=== PATIENT | female | born 1965 | race Caucasian/White ===

== ENCOUNTER 2022-05-23 17:27 | Emergency (ER) | payer BC, SELFPAY ==
[2022-05-23 17:53] VITALS: BP 141/105; PULSE 100; RESP 18; TEMP 36.7; O2SAT 96; BMI 28.2
--- NOTE | 2022-05-23 18:16 | CRLHL7_ITS ---
For Patients: As a result of the Century Cures Act, medical imaging exams and procedure reports are released immediately into your electronic medical record. You may view this report before your referring provider. If you have questions, please contact your health care provider. INDICATION: Sinus pressure. TECHNIQUE: CT sinus without contrast. COMPARISON: None. FINDINGS: Paranasal sinuses: Aplastic left frontal sinus. Mild mucosal thickening in the maxillary antra inferiorly. Mucosal thickening with narrowing of the left ostiomeatal unit. The ostiomeatal units are otherwise patent. The fovea ethmoidalis and orbital blackwell are intact. The nasal septum is mildly deviated to the right. The nasal turbinates are normal. Scattered left nasal cavity mucosal thickening. Orbits and globes: Mild prominence of the optic nerve sheaths. Visualized intracranial contents: Partially empty sella. Soft tissues: Unremarkable. IMPRESSION: 1. Mild scattered mucosal thickening in the left nasal cavity and inferior maxillary antra. No evidence of sinusitis. 2. Partially empty sella with mild prominence of the optic nerve sheaths, nonspecific but may be seen in the setting of idiopathic intracranial hypertension. Clinically correlate. Please note that all CT scans at this facility use dose modulation, iterative reconstruction, and/or weight-based dosing when appropriate to reduce radiation dose to as low as reasonably achievable. Dictated by Sohail Malone MD @ 05/23/2022 7:30:33 PM (Electronically Signed)
--- NOTE | 2022-05-23 18:16 | ED.GENADULT ---
HPI - General Adult General Chief complaint: Unspecified Complaint, Adult Stated complaint: Covid+ Pain Fever Sinus Pressure Time Seen by Provider: 05/23/22 17:28 History of Present Illness HPI narrative: This 57-year-old female comes in reporting upper respiratory symptoms including occasional cough, sinus congestion with lots of pain and pressure in her face and forehead. She does not report any shortness of breath. She states that she has had a fever up to 103? F. She tested at home for COVID yesterday which yielded a positive result. Related Data Home Medications Medication Instructions Recorded Confirmed cholecalciferol (vitamin D3) 1,250 05/23/22 mcg (50,000 unit) capsule spironolactone 100 mg tablet mg 05/23/22 triamterene 37.5 cap 05/23/22 mg-hydrochlorothiazide 25 mg capsule Previous Rx's Medication Instructions Recorded methylprednisolone 4 mg tablets in See Rx Instructions PO .COMPLEX 05/23/22 a dose pack (Medrol (Douglas)) #21 ea ondansetron HCl 4 mg tablet 4 mg PO Q6H #20 tabs 05/23/22 tramadol 50 mg tablet 50 mg PO Q6H PRN pain #20 tabs 05/23/22 Allergies Allergy/AdvReac Type Severity Reaction Status Date / Time cefaclor [From [facility]] Allergy Verified 05/23/22 17:58 Review of Systems Status of ROS: Reports: 10 or more systems reviewed and unremarkable except as noted in History and below Narrative: Constitutional: No weight gain or loss. She reports fevers. Eyes: No discharge. No vision changes. HENT: Nasal congestion, no sore throat, no ear pain. She has headache and sinus pain and pressure. Cardiovascular: No chest pain, no palpitations. Respiratory: No shortness of breath, no wheezes. Occasional cough. Gastrointestinal: No abdominal pain, no vomiting, no diarrhea. Genitourinary: No dysuria, no hematuria. Musculoskeletal: Normal range of motion. Skin: No rashes, no pruritis. Neurological: No dizziness, weakness, sensory change, speech change. Endo/Heme/Allergies: No bruising or bleeding. No polydipsia. Pysch: no suicidality, no anxiety, no insomnia. All other systems reviewed and are negative. PFSH PFSH Social History Smoking Status: Never smoker Do you use any of these nicotine containing products: None Second hand tobacco smoke exposure: No How often do you have a drink containing alcohol: never How often do you have six or more drinks on one occasion: Never AUDIT-C Alcohol total score: 0 Non-prescribed substance use: denies use service: No Exam Narrative: Exam Narrative: Constitutional: Well-developed, well-nourished. She appears to be in discomfort with respect to her symptoms. HEENT: Normocephalic, atraumatic. Neck: Normal range of motion. Nontender. Supple. Heart: Regular. No murmurs. Normal rate. Intact distal pulses. Lungs: Clear to auscultation. No chest discomfort. No wheezes, rhonchi, or rales. Abdomen: Normal bowel sounds. Nontender. No rebound tenderness. Genitalia: Deferred. Back: No midline tenderness. Normal range of motion. Extremities: Normal range of motion. No injury. Skin: Intact. No rash. Warm. No erythema or pallor. Neurologic: No altered sensation. No weakness. Alert and oriented. Psychiatric: No suicidality. No anxiety or depression. No insomnia. Nursing notes and vitals signs are reviewed. Const: Vital Signs, click to edit/add: Vital Signs - 24 hr 05/23/22 17:53 Temperature 98.0 F Pulse Rate [Left P ulse Oximeter] 100 Respiratory Rate 18 Blood Pressure [Ri ght Upper Arm] 141/105 H Pulse Oximetry 96 Oxygen Delivery Me thod Room Air Course Vital Signs Vital signs: Initial Vital Signs Temperature 98.0 F 05/23/22 17:53 Temperature Source Temporal Artery Scan 05/23/22 17:53 Pulse Rate 100 05/23/22 17:53 Pulse Rhythm 05/23/22 17:53 Pulse Strength 3+ Normal 05/23/22 17:53 Respiratory Rate 18 05/23/22 17:53 Blood Pressure 141/105 H 05/23/22 17:53 Blood Pressure Mean 117 05/23/22 17:53 Blood Pressure Position Sitting 05/23/22 17:53 Pulse Oximetry 96 05/23/22 17:53 Oxygen Delivery Method 05/23/22 17:53 Vital Signs Temperature 98.0 F 05/23/22 17:53 Pulse Rate 100 05/23/22 17:53 Respiratory Rate 18 05/23/22 17:53 Blood Pressure 141/105 H 05/23/22 17:53 Pulse Oximetry 96 05/23/22 17:53 Oxygen Delivery Method 05/23/22 17:53 Temperature 98.0 F 05/23/22 17:53 Pulse Rate 100 05/23/22 17:53 Respiratory Rate 18 05/23/22 17:53 Blood Pressure 141/105 H 05/23/22 17:53 Pulse Oximetry 96 05/23/22 17:53 Oxygen Delivery Method 05/23/22 17:53 Medical Decision Making MDM Narrative Medical decision making narrative: This patient comes in reporting headache and sinus pain and had a positive COVID test yesterday. An IV was established where she received a L of normal saline, Solu-Medrol 125 mg, and Toradol 30 mg, and Zofran 4 mg. Her nausea was well improved but she continues to complain of pain. She then received Dilaudid 0.5 mg IV. Lab results returned with normal labs of blood tests but her nasal pharyngeal swab is positive for COVID. A CT scan of the sinuses does not show any evidence of sinusitis. This patient is okay to return home. Prescriptions are provided for tramadol, Zofran, and Medrol Dosepak. Lab Data Labs: Lab Results 05/23/22 05/23/22 05/23/22 Range/Units 18:20 18:20 18:20 WBC 4.72 (4.50-11.00) K/uL RBC 5.21 H (4.00-5.20) m/uL Hgb 15.8 (12.0-16.0) gm/dL Hct 48.0 (33.0-51.0) % MCV 92 (80-100) fL MCH 30 (26-34) pg MCHC 33 (32-36) gm/dL RDW Coeff of Nery 12.9 (11.5-15.5) % Plt Count 186 (140-440) K/uL Neut % (Auto) 52.8 (42.0-72.0) % Lymph % (Auto) 16.9 L (20-44) % Spink % (Auto) 28.8 H (0.0-11.0) % Eos % (Auto) 0.0 (0.0-7.0) % Baso % (Auto) 1.1 (0.0-3.0) % Neut # (Auto) 2.49 (1.7-7.0) K/uL Lymph # (Auto) 0.80 L (0.90-2.90) K/uL Spink # (Auto) 1.40 H (0.00-0.90) K/UL Eos # (Auto) 0.00 (0.00-0.50) K/uL Baso # (Auto) 0.05 (0.00-0.30) K/uL Abs Immat Gran (auto) 0.02 (0.00-0.30) K/uL Imm/Tot Granulo (auto) 0.4 % Sodium 137 (135-149) mmol/L Potassium 3.8 (3.6-5.1) mmol/L Chloride 99 (96-114) mmol/L Carbon Dioxide 27 (20-32) mmol/L BUN 9 (7-30) mg/dL Creatinine 1.0 (0.5-1.5) mg/dL Estimated Creat Clear 58.11 Estimated GFR 66 ml/min Glucose 103 (60-115) mg/dL Calcium 9.3 (8.4-10.6) mg/dL SARS-CoV-2 (PCR) POSITIVE SARS-CoV-2 A (Negative) Influenza Type A (PCR) Negative PCR FLU A (Negative) Influenza Type B (PCR) Negative PCR FLU B (Negative) RSV (PCR) Negative PCR RSV (Negative) Imaging Data CT sinuses: Radiologist's impression: 1. Mild scattered mucosal thickening in the left nasal cavity and inferior maxillary antra. No evidence of sinusitis. 2. Partially empty sella with mild prominence of the optic nerve sheaths, nonspecific but may be seen in the setting of idiopathic intracranial hypertension. Clinically correlate. Discharge Plan Discharge Clinical Impression: COVID Patient Disposition: Home, Self-Care Condition: Unchanged Additional Instructions: Take medications as prescribed. Follow up with MD or return if worsening. Prescriptions: New ondansetron HCl 4 mg tablet 4 mg PO Q6H Qty: 20 0RF tramadol 50 mg tablet 50 mg PO Q6H PRN (Reason: pain) Qty: 20 0RF methylprednisolone [Medrol (Douglas)] 4 mg tablets,dose pack See Rx Instructions .ROUTE .COMPLEX Qty: 21 0RF Rx Instructions: orally per package directions No Action spironolactone 100 mg tablet triamterene-hydrochlorothiazid 37.5-25 mg capsule Label Comments: TAKE 1 CAPSULE BY MOUTH EVERY MORNING cholecalciferol (vitamin D3) 1,250 mcg (50,000 unit) capsule Label Comments: TAKE 1 CAPSULE BY MOUTH TWICE WEEKLY FOR 6 WEEKS Follow Up/Referrals: Chanda Mckee MD [Primary Care Provider] - Stand Alone [facility] Info Inst[facility]
[2022-05-23 18:39] LABS: Basophils Absolute Auto 0.05 K/uL (0.00-0.30); Basophils Percent Auto 1.1 % (0.0-3.0); Hemoglobin* 15.8 gm/dL (12.0-16.0); Immature Granulocytes Abs Auto 0.02 K/uL (0.00-0.30); Immature Granulocytes Pct Auto 0.4 %; Lymphocytes Percent Auto 16.9 % (20-44); Mean Corpuscular HGB Conc 33 gm/dL (32-36); Mean Corpuscular Hemoglobin 30 pg (26-34); Mean Corpuscular Volume 92 fL (80-100); Monocytes Percent Auto 28.8 % (0.0-11.0); Neutrophils Absolute Auto 2.49 K/uL (1.7-7.0); Neutrophils Percent Auto 52.8 % (42.0-72.0); Platelet Count* 186 K/uL (140-440); RDW Coefficient of Variation % 12.9 % (11.5-15.5); Red Blood Count 5.21 m/uL (4.00-5.20); White Blood Count* 4.72 K/uL (4.50-11.00)
[2022-05-23 18:44] LABS: Slide Review Reflex No
[2022-05-23] MEDS: 0.9 % SODIUM CHLORIDE 1000 ml 1,000 ML IV (18:46)
[2022-05-23] MEDS: KETOROLAC 30 MG/ML inj IVP (18:46)
[2022-05-23] MEDS: ONDANSETRON 2 MG/ML inj 4 MG IVP (18:46)
[2022-05-23 18:53] LABS: Chloride* 99 mmol/L (96-114); Sodium* 137 mmol/L (135-149)
[2022-05-23 18:54] LABS: Potassium* 3.8 mmol/L (3.6-5.1)
[2022-05-23 18:56] LABS: Carbon Dioxide* 27 mmol/L (20-32); Est. Creatinine Clearance* 58.11; Estimated Glomerular Filt Rate 66 ml/min
[2022-05-23 18:57] LABS: Blood Urea Nitrogen* 9 mg/dL (7-30); Calcium* 9.3 mg/dL (8.4-10.6); Glucose* 103 mg/dL (60-115)
[2022-05-23 19:18] LABS: PCR FLU A Negative PCR FLU A (Negative); PCR FLU B Negative PCR FLU B (Negative); PCR RSV Negative PCR RSV (Negative)
[2022-05-23 19:33] LABS: SARS PCR* POSITIVE SARS-CoV-2 (Negative)
[2022-05-23] MEDS: METHYLPREDNISOLONE SOD SUCC 62.5 MG/ML (125) 125 MG IVP (20:01)
[2022-05-23] MEDS: HYDROmorphone 0.5 mg/0.5 ml inj IVP (20:01)
[2022-05-23 20:29] VITALS: PULSE 82; RESP 16; O2SAT 94
--- NOTE | 2022-05-23 20:29 | ED.NURSE ---
pt friend called to given pt ride to [employer] then home.
== END 2022-05-23 20:40 | disposition home or self-care (01) ==
PROVIDERS: Emergency Provider Emergency Medicine Emergency Medical Services; PCP Family Medicine
DX: U07.1 COVID-19 (principal); R05.9 Cough, unspecified
CPT/HCPCS: 36415; 70486; 80048; 85025; 87502; 87634; 87635; 96361; 96374; 96375; 99284; 99285; J1170; J1885; J2405; J2930; J7030

== ENCOUNTER 2023-06-08 06:29 | Day surgery (SDC) | payer BC, SELFPAY ==
[2023-06-08] VITALS (9 sets, daily range): BP systolic 122–136; BP diastolic 69–93; PULSE 72–78; RESP 16; TEMP 36.2–36.8; O2SAT 97–100; BMI 33.4
--- NOTE | 2023-06-08 07:10 | W.PM.H&PU ---
History & Physical Update History & Physical Update H&P Reviewed and patient assessed: No changes noted
--- NOTE | 2023-06-08 08:00 | P.ORPRC_ITS ---
Procedure Note Date of procedure: 06/08/23 Procedure: PREOPERATIVE DIAGNOSIS: 1. Right thumb trigger digit POSTOPERATIVE DIAGNOSIS: 1. Right thumb trigger digit PROCEDURE: 1. Right thumb trigger (A1 ariela) release SURGEON: Hu Castro MD. BIOMASS TECHNICIAN: Olivia Allen P.A.-C. An customer marketing assistant was critical for this case to aid in patient positioning, tissue retraction, limb manipulation/positioning, and closure. ANESTHESIA: Local anesthetic IMPLANTS: None TOURNIQUET: 11 minutes at 250 mmHg COMPLICATIONS: None INDICATIONS: The patient is a pleasant 50-year-old female who has history of right thumb pain and triggering. Symptoms did not improve with conservative management. Patient subsequently elected to proceed with surgical intervention consisting of right thumb A1 ariela release. Prior to surgery risks and benefits were discussed with patient all questions were answered informed consent was obtained. DESCRIPTION OF PROCEDURE: Patient was seen preoperatively and operative site was marked. Patient was then brought to the operating room placed in supine position on the OR table. A tourniquet was placed on the patient's right arm and right upper extremity was prepped and draped in usual sterile fashion. A surgical time-out was performed confirming patient name, procedure, and location. The subcutaneous tissues overlying the right thumb A1 raiela were injected with combination of 1% lidocaine and 0.25% bupivacaine. Operative extremity was then elevated and exsanguinated with an Esmarch, and tourniquet was inflated to 250 mmHg. A skin incision measuring approximately 1 cm was made longitudinally over the A1 ariela of the right thumb. Blunt dissection was used to dissect through subcutaneous tissues. The underlying flexor tendons and A1 ariela were identified and retractors were used to protect the neurovascular structures. The A1 ariela was then released using a tenotomy scissor. After complete release of the A1 ariela, the patient was asked to flex and extend their thumb, and no active triggering was noted. Tourniquet was then released and hemostasis was achieved with bipolar electrocautery. Total tourniquet time was 11 minutes. Wound was the irrigated with normal saline. Skin incision was closed with 4-0 nylon horizontal mattress sutures, and a sterile dressing was applied. Patient was then transferred to the recovery room in stable condition. POSTOPERATIVE PLAN: 1. Patient will be discharged to home day of surgery. 2. They were given instructions for wound care and finger range of motion exercises. 3. Return to the clinic for follow-up evaluation in 10-14 days for wound check and suture removal.
== END 2023-06-08 08:29 | disposition home or self-care (01) ==
PROVIDERS: PCP Student in an Organized Health Care Education/Training Program; Visit Provider Orthopaedic Surgery
PROC: (CPT 26055; principal; 2023-06-08 07:30)
DX: M65.311 Trigger thumb, right thumb (principal)
CPT/HCPCS: 26055